=== PATIENT | female | born 1980 | race Caucasian/White ===

== ENCOUNTER 2017-02-17 08:18 | Inpatient (IN) ==
[2017-02-20] MEDS ORDERED: PEPCID IV PRN (20:42)
[2017-02-20] MEDS ORDERED: TYLENOL PO PRN (20:42)
[2017-02-20] MEDS ORDERED: BRETHINE SUBQ PRN (20:42)
[2017-02-20] MEDS ORDERED: STADOL IV PRN ×3 (20:42)
[2017-02-20] MEDS ORDERED: AMBIEN PO PRN (20:42)
[2017-02-20] MEDS ORDERED: ZOFRAN IV PRN (20:42)
[2017-02-20] MEDS ORDERED: PEPCID PO PRN (20:42)
[2017-02-20] MEDS ORDERED: PEPCID PO ONE (20:42)
[2017-02-20] MEDS ORDERED: REGLAN PO ONE (20:42)
[2017-02-20] MEDS ORDERED: CYTOTEC PO ONE (23:00)
[2017-02-20 23:06] LABS: URINE SOURCE VOIDED
[2017-02-20 23:06] LABS: MANUAL DIFF NEEDED? NO
[2017-02-20 23:38] LABS: BILIRUBIN URINE NEGATIVE (NEGATIVE); BLOOD URINE 3+ (NEGATIVE); CLARITY CLEAR (CLEAR); COLOR YELLOW; GLUCOSE URINE NEGATIVE (NEGATIVE); LEUKOCYTES URINE 2+ (NEGATIVE); NITRITE URINE NEGATIVE (NEGATIVE); PH URINE 6.5; PROTEIN URINE NEGATIVE (NEGATIVE); SP GRAVITY URINE 1.005; URINE MICROSCOPIC NEEDED? YES; UROBILINOGEN URINE NORMAL
[2017-02-20 23:56] LABS: BASO% 0.4 % (0.0-0.8); EOS# 0.17 X1000 (0.0-0.7); EOS% 2.1 % (0.0-10.0); HEMATOCRIT 28.7 % (37.0-47.0); HEMOGLOBIN 10.1 g/dL (12.0-16.0); IMM GRAN# 0.04 X1000 (0.0-0.04); IMM GRAN% 0.5 % (0.0-0.5); LYMPH# 1.82 X1000 (1.2-3.4); LYMPH% 22.9 % (20.5-51.1); MCH 33.1 PG (27-31); MCHC 35.2 g/dL (33-37); MCV 94.1 FL (81-99); MONO% 7.6 % (1.7-9.3); MPV 9.7 FL (7.4-10.4); NEUT% 66.5 % (42.2-75.2); PLT 137 X1000 (130-400); RBC 3.05 XMIL (4.2-5.4)
[2017-02-21 00:06] LABS: URINE EPITHELIAL CELLS <10 /HPF (<10); URINE RBC <10 /HPF (<10)
[2017-02-21 01:19] LABS: UR AMPHETAMINES QUAL NONE DETECTED (NONE DETECT); UR BARBITUATES QUAL NONE DETECTED (NONE DETECT); UR BENZODIAZEPIN QUAL NONE DETECTED (NONE DETECT); UR CANNABINOIDS QUAL NONE DETECTED (NONE DETECT); UR COCAINE QUAL NONE DETECTED (NONE DETECT); UR MDMA QUAL NONE DETECTED (NONE DETECT); UR METHADONE QUAL NONE DETECTED (NONE DETECT); UR METHAMPHETAMINE QUAL NONE DETECTED (NONE DETECT); UR OPIATES QUAL NONE DETECTED (NONE DETECT); UR OXYCODONE QUAL NONE DETECTED (NONE DETECT); UR PCP QUAL NONE DETECTED (NONE DETECT); UR TCA QUAL NONE DETECTED (NONE DETECT)
[2017-02-21] MEDS ORDERED: CYTOTEC PO SCH (03:00)
[2017-02-21] MEDS ORDERED: PITOCIN 30 UNITS/LR 500 ML IV SCH (07:00)
[2017-02-21] MEDS: LR 1,000 ML IV SCH ×3 (07:35→15:23)
[2017-02-21] MEDS ORDERED: FENTANYL-BUPIV-NS 2 MCG-0.1% 200 ML EPIDURAL ONE (08:00)
[2017-02-21] MEDS ORDERED: XYLOCAINE-MPF 1% INJ ONE ×2 (08:00→12:54)
[2017-02-21] MEDS ORDERED: MINERAL OIL TOP ONE (12:56)
[2017-02-21] MEDS ORDERED: PITOCIN 20 UNITS/LR 1,000 ML ONE (15:20)
[2017-02-21] MEDS ORDERED: DURAMORPH ONE (15:22)
[2017-02-21] MEDS ORDERED: SENSORCAINE-MPF 0.5%/EPI 1:200,000 ONE (15:23)
[2017-02-21] MEDS ORDERED: BICITRA ONE (15:23)
[2017-02-21] MEDS ORDERED: NESACAINE-MPF 3% ONE (15:23)
[2017-02-21] MEDS ORDERED: FENTANYL ONE (15:24)
[2017-02-21] MEDS ORDERED: BICITRA PO ONE (15:30)
--- NOTE | 2017-02-21 15:44 | HISTORY AND PHYSICAL ---
HISTORY OF PRESENT ILLNESS: The patient is a 36-year-old, G-3, P-0-0-2-0, with intrauterine at 40 weeks 4 days. The patient presented for induction of labor secondary to advanced maternal age and history of hepatitis C. During induction, the patient was noted to have heart rate of 90s and positive accelerations; however, given persistent bradycardia, will proceed to the operating room for primary abdominal delivery. Risks, benefits and alternatives were discussed with the patient and she desires to proceed. PAST MEDICAL HISTORY: Significant for hepatitis C. PAST SURGICAL HISTORY: Dilation and curettage. OBSTETRIC HISTORY: SAB x2. GYNECOLOGIC HISTORY: Noncontributory. PHYSICAL EXAMINATION: VITAL SIGNS: Patient afebrile. Vital signs stable. GENERAL: Patient in no acute distress. ABDOMEN: Soft, gravid, nontender to palpation. heart tones in 90s with positive accelerations, category II. : Cervix 4 cm dilated. ASSESSMENT AND PLAN: A 36-year-old 3, para 0-0-2-0, with intrauterine at 40 weeks 4 days. We will proceed to the operating room for primary delivery. MTDD
[2017-02-21] MEDS ORDERED: KEFZOL 2 GM/D5W 50 ML IV ONE (16:00)
[2017-02-21] MEDS ORDERED: HYDROXYZINE PO PRN (16:17)
[2017-02-21] MEDS ORDERED: DULCOLAX PR PRN (16:17)
[2017-02-21] MEDS ORDERED: DEMEROL PO PRN ×2 (16:17)
[2017-02-21] MEDS ORDERED: NORCO-5 PO PRN ×2 (16:17→17:46)
[2017-02-21] MEDS ORDERED: HYDROXYZINE IM PRN (16:17)
[2017-02-21] MEDS ORDERED: MYLICON PO PRN (16:17)
[2017-02-21] MEDS ORDERED: DEMEROL IM PRN (16:17)
[2017-02-21] MEDS ORDERED: PHENERGAN IM PRN (16:17)
[2017-02-21] MEDS ORDERED: PITOCIN 20 UNITS/LR 1,000 ML IV ONE (16:17)
[2017-02-21] MEDS ORDERED: AMBIEN PO PRN (16:17)
[2017-02-21] MEDS ORDERED: M-M-R II VACCINE SUBQ ONE (16:17)
[2017-02-21] MEDS ORDERED: PITOCIN IM PRN (16:17)
[2017-02-21] MEDS ORDERED: BOOSTRIX VACCINE IM ONE (16:17)
[2017-02-21] MEDS ORDERED: CYTOTEC PO PRN (16:17)
[2017-02-21] MEDS ORDERED: BENADRYL IV PRN (17:46)
[2017-02-21] MEDS ORDERED: NARCAN INJ PRN (17:46)
[2017-02-21] MEDS ORDERED: ZOFRAN ODT PO PRN (17:46)
[2017-02-21] MEDS ORDERED: ZOFRAN IV PRN ×2 (17:46)
[2017-02-21] MEDS ORDERED: NORCO-10 PO PRN (17:47)
[2017-02-21] MEDS: SUBUTEX SL SCH (17:57)
[2017-02-21] MEDS: TORADOL IV SCH ×2 (18:22→23:56)
[2017-02-21] MEDS: MYLICON PO SCH ×2 (18:23→21:40)
[2017-02-21] MEDS: PITOCIN 10 UNITS/LR 1,000 ML IV SCH (18:28)
[2017-02-21] MEDS: PERICOLACE PO SCH (21:40)
[2017-02-21] MEDS: NORCO-10 PO PRN (21:48)
[2017-02-22] MEDS: PITOCIN 10 UNITS/LR 1,000 ML IV SCH (02:36)
[2017-02-22] MEDS: TORADOL IV SCH (06:21)
[2017-02-22 06:22] LABS: HEMOGLOBIN 9.3 g/dL (12.0-16.0); MCH 32.4 PG (27-31); MCHC 34.4 g/dL (33-37); MCV 94.1 FL (81-99); MPV 10.9 FL (7.4-10.4); RBC 2.87 XMIL (4.2-5.4)
--- NOTE | 2017-02-22 08:50 | OPERATIVE NOTE ---
PROCEDURE DATE: 02/22/2017 DATE OF SURGERY: 02/22/2017. PREOPERATIVE DIAGNOSES: 1. Intrauterine at 40 weeks and 4 days. 2. Hepatitis C. 3. Advanced maternal age. 4. bradycardia. POSTOPERATIVE DIAGNOSES: 1. Intrauterine at 40 weeks and 4 days. 2. Hepatitis C. 3. Advanced maternal age. 4. bradycardia. PROCEDURE: Primary low segment transverse section. SURGEON: Dr. Doretha Martinez. ANESTHESIA: Spinal. ESTIMATED BLOOD LOSS: 500 mL. COMPLICATIONS: None. COUNTS: Correct x2. FINDINGS: Viable female infant. Grossly normal appearing bilateral fallopian tubes and ovaries. Multiple small pedunculated fibroids. INDICATIONS FOR PROCEDURE: Patient is a 36-year-old, G 3, P 0-0-2-0, with intrauterine at 40 weeks and 4 days, who presented for induction of labor. During induction , patient noted to have heart tones in the 90s with accelerations; however, no change in baseline despite conservative measurements. So, decision made to proceed to the operating room for primary abdominal delivery. Risks, benefits and alternatives discussed with the patient and she desires to proceed. PROCEDURE IN DETAIL: After proper informed consent was obtained, the patient was taken to the operating room and placed in the dorsal supine position with adequate spinal anesthesia. The abdomen was prepped and draped in the normal sterile fashion for abdominal surgery after a proper time-out was performed. A low transverse incision was made on the skin using the scalpel. This was carried down to the underlying fascia which was scored in the midline. Fascial incision was extended laterally and cephalad using bowen scissors. The inferior aspect of the fascial defect was grasped with Enoc clamps and dissected off the underlying rectus abdominis muscles. Similar was carried out to the superior aspect of the fascial defect. Muscles bluntly in the midline. The peritoneum was entered bluntly and stretched open with the drilling field operator's hand. Bladder blade was placed to protect the bladder. A low transverse incision was made on the uterus and stretched using the drilling field operator's hand. Infant was delivered in vertex presentation. Cord was doubly clamped and cut, and the infant was handed off to the awaiting pediatric staff. Placenta was then delivered via fundal massage. The uterus was exteriorized, and cleared free of all clot and debris. The hysterotomy was reapproximated using #1 chromic in a running, locking fashion. Good hemostasis was noted. The posterior cul-de-sac was cleared free of all clot and debris, and the uterus was returned to the abdomen. The pericolic gutters were cleared free of all clot and debris. The hysterotomy was reinspected and noted to be hemostatic. The peritoneum was then reapproximated using 3-0 chromic in a running, continuous fashion. The muscles were inspected and noted to be hemostatic. Fascia was then reapproximated using #1 Vicryl in a running, continuous fashion. Subcutaneous tissue was noted to be hemostatic and was reapproximated using 3-0 chromic in a running, continuous fashion. Skin was reapproximated using 4-0 Monocryl in a subcuticular fashion. Patient tolerated the procedure well and was transferred to recovery in stable condition. [facility]
[2017-02-22] MEDS: SUBUTEX SL SCH ×3 (09:06→19:00)
[2017-02-22] MEDS: NORCO-10 PO PRN ×4 (09:10→21:33)
[2017-02-22] MEDS: MYLICON PO SCH ×4 (09:10→20:24)
[2017-02-22] MEDS: MOTRIN PO PRN ×2 (14:34→22:37)
[2017-02-22] MEDS ORDERED: LR 1,000 ML IV SCH (16:17)
[2017-02-22] MEDS: PERICOLACE PO SCH (20:24)
[2017-02-23] MEDS: NORCO-10 PO PRN ×2 (05:00→21:30)
[2017-02-23] MEDS: MOTRIN PO PRN ×2 (06:40→18:18)
[2017-02-23] MEDS: MYLICON PO SCH ×4 (09:02→21:26)
[2017-02-23] MEDS: SUBUTEX SL SCH ×3 (09:02→18:18)
[2017-02-23] MEDS: NEOSPORIN OINTMENT PACKET TOP PRN (21:26)
[2017-02-23] MEDS: PERICOLACE PO SCH (21:26)
[2017-02-24] MEDS: NORCO-10 PO PRN ×3 (04:02→14:10)
[2017-02-24] MEDS: MOTRIN PO PRN ×2 (04:02→14:09)
[2017-02-24] MEDS: NEOSPORIN OINTMENT PACKET TOP PRN ×2 (05:03→14:10)
[2017-02-24] MEDS: MYLICON PO SCH ×2 (09:42→14:09)
[2017-02-24] MEDS: SUBUTEX SL SCH ×2 (09:42→14:09)
[2017-02-24 16:11] VITALS: BP 125/75
== END 2017-02-24 14:45 | disposition home or self-care (01) ==
LOC: EEVIPCON 02-20 20:37 → P.LD 02-20 20:37
PROVIDERS: ADMIT Obstetrics & Gynecology